=== PATIENT | female | born 2005 | race Two or more races ===

== ENCOUNTER 2024-09-09 17:57 | Emergency (ER) | payer OTHER ==
[~2024-09-09] VITALS: Ht 160 cm; Wt 59.0 kg
[2024-09-09] MEDS ORDERED: FAMOtidine 10 MG/ML (4ML VIAL) IV SCH (19:33)
[2024-09-09] MEDS ORDERED: ONDANSETRON HCL 2 MG/ML VIAL IV PRN (19:45)
[2024-09-09] MEDS ORDERED: DEXTROSE 5 % AND 0.9 % NACL 1,000 ML IV SCH (19:45)
[2024-09-09 20:06] LABS: HEMATOCRIT 39.2 % (36.0-45.00); HEMOGLOBIN 13.3 g/dL (12.0-15.00); MEAN CELL VOLUME 86.5 fL (80.00-100.00); MEAN CORPUSCULAR HEMOGLOBIN 29.2 pg (27.00-32.0); MEAN CORPUSCULAR HGB CONC 33.8 g/dl (32.0-36.0); PLATELET COUNT 336 K/uL (150-450); RED BLOOD COUNT 4.54 M/uL (4.00-6.00); RED CELL DISTRIBUTION WIDTH 13.1 % (11.5-14.5)
[2024-09-09 20:25] LABS: ALBUMIN 4.8 gm/dL (3.4-5.0); BILIRUBIN TOTAL 0.61 mg/dL (0.3-1.2); CALCIUM 9.6 mg/dL (8.5-10.1); CREATININE SERUM 0.64 mg/dL (0.55-1.02); GFR 118.3; GLOBULINA 4.1 G/DL (2.4-3.5); POTASSIUM 3.91 mEq/L (3.5-5.1); TOTAL PROTEIN 8.9 gm/dL (6.4-8.2)
[2024-09-09 22:00] LABS: PH,URINE 5.5 (5.0-8.0); URINE APPEARANCE Cloudy; URINE BILIRRUBIN Negative (NEGATIVE); URINE BLOOD Large; URINE COLOR Dark Yellow; URINE GLUCOSE Negative (NEGATIVE); URINE LEUKOCYTE Trace; URINE NITRATE Negative; URINE PROTEIN 30 (NEGATIVE)
[2024-09-09 22:04] LABS: URINE EPITHELIAL CELLS 90.8 uL (0.0-38.8); URINE RBC 16.3 uL (0.0-20.8); URINE WBC 40.6 uL (0.0-23.2)
[2024-09-09 22:16] LABS: URINE CAST 0.29 uL (0.0-1.40); URINE KETONE 80 (NEGATIVE)
[2024-09-09 22:17] LABS: URINE MUCUS HEAVY
== END 2024-09-09 22:42 | disposition home or self-care (01) ==
LOC: EMR PED 17:59 → ER 17:59 → EMR PED 19:17
PROVIDERS: General Practice
DX: K52.89 Other specified noninfective gastroenteritis and colitis (principal); R11.10 Vomiting, unspecified; Z20.822 Contact with and (suspected) exposure to COVID-19

== ENCOUNTER 2025-01-24 14:48 | Emergency (ER) | payer OTHER ==
[~2025-01-24] VITALS: Ht 160 cm; Wt 63.5 kg
[2025-01-24] MEDS ORDERED: FAMOTIDINE/PF 20 MG/2 ML VIAL IV SCH (16:00)
[2025-01-24] MEDS ORDERED: ONDANSETRON HCL 2 MG/ML VIAL IV SCH (16:00)
[2025-01-24] MEDS ORDERED: DEXTROSE 5 % AND 0.9 % NACL 1,000 ML IV SCH (16:00)
[2025-01-24] MEDS ORDERED: 0.9 % SODIUM CHLORIDE 1,000 ML IV SCH (16:00)
[2025-01-24] MEDS ORDERED: ONDANSETRON HCL 2 MG/ML VIAL ONE (16:07)
[2025-01-24] MEDS ORDERED: FAMOTIDINE/PF 20 MG/2 ML VIAL ONE (16:07)
[2025-01-24 16:46] LABS: HEMATOCRIT 39.5 % (36.0-45.00); HEMOGLOBIN 13.5 g/dL (12.0-15.00); MEAN CELL VOLUME 85.2 fL (80.00-100.00); MEAN CORPUSCULAR HEMOGLOBIN 29.1 pg (27.00-32.0); MEAN CORPUSCULAR HGB CONC 34.1 g/dl (32.0-36.0); PLATELET COUNT 384 K/uL (150-450); RED BLOOD COUNT 4.63 M/uL (4.00-6.00); RED CELL DISTRIBUTION WIDTH 12.8 % (11.5-14.5)
[2025-01-24 17:44] LABS: ALBUMIN 4.5 gm/dL (3.4-5.0); BILIRUBIN TOTAL 0.24 mg/dL (0.3-1.2); CALCIUM 9.8 mg/dL (8.5-10.1); CREATININE SERUM 0.59 mg/dL (0.55-1.02); GFR 129.95; GLOBULINA 4.7 G/DL (2.4-3.5); POTASSIUM 3.25 mEq/L (3.5-5.1); TOTAL PROTEIN 9.2 gm/dL (6.4-8.2)
[2025-01-24] MEDS ORDERED: RINGERS SOLUTION,LACTATED 1,000 ML IV SCH (19:00)
[2025-01-24] MEDS ORDERED: HYOSCYAMINE SULFATE 0.125 MG TAB.SUBL SL STA (19:15)
[2025-01-24] MEDS ORDERED: HYOSCYAMINE SULFATE 0.125 MG TAB.SUBL ONE (19:26)
[2025-01-24] MEDS ORDERED: BISMUTH SUBSALICYLATE 524 MG/30 ML BLIST.PACK PO STA (22:14)
[2025-01-24] MEDS ORDERED: BISMUTH SUBSALICYLATE 524 MG/30 ML BLIST.PACK PO ONE (22:36)
== END 2025-01-25 00:23 | disposition home or self-care (01) ==
LOC: ER 14:48 → EMR PED 15:05 → ER 15:05 → EMR PED 01-25 00:23
PROVIDERS: Emergency Medicine Pediatric Emergency Medicine
DX: E86.0 Dehydration (principal); K52.89 Other specified noninfective gastroenteritis and colitis

== ENCOUNTER 2025-06-30 17:54 | Emergency (ER) | payer OTHER ==
[~2025-06-30] VITALS: Ht 160 cm; Wt 63.5 kg
[2025-06-30 19:30] LABS: BASO % 0.5 % (0.1-1.2); EOS # 0.32 (0.04-0.54); EOS % 3.7 % (0.7-7.0); LYMPH # 2.33 (1.18-3.74); LYMPH % 26.8 % (19.3-53.1); MEAN PLATELET VOLUME 9.80 fl (9.4-12.4); MONO # 0.63 (0.24-0.82); MONO % 7.3 % (4.7-12.5); NEUT # 5.33 (1.56-6.13); NEUT % 61.4 % (34.0-71.1); RED CELL DISTRIBUTION WIDTH 12.8 % (11.6-14.4)
[2025-06-30 19:39] LABS: URINE APPEARANCE Clear; URINE BILIRRUBIN Small (NEGATIVE); URINE BLOOD Negative; URINE COLOR Orange; URINE GLUCOSE Negative (NEGATIVE); URINE KETONE Negative (NEGATIVE); URINE LEUKOCYTE Moderate; URINE NITRATE Positive; URINE PROTEIN Trace (NEGATIVE); URINE UROBILINOGEN 1.0 E.U./dl
[2025-06-30 19:48] LABS: URINE BACTERIA 694.7 uL (0.0-1933); URINE EPITHELIAL CELLS 25.6 uL (0.0-38.8); URINE RBC 10.1 uL (0.0-20.8); URINE WBC 162.4 uL (0.0-23.2)
[2025-06-30 19:50] LABS: BUN CREA RATIO 15.0 (7.0-25.0); CREATININE SERUM 0.59 mg/dL (0.55-1.02); GFR 128.67; GLUCOSE FASTING 101.0 mg/dL (65-100); OSMOLALITY SERUM 280.0 MOSM/KG (275-295)
[2025-06-30 20:10] LABS: URINE CAST 0.00 uL (0.0-1.40)
[2025-06-30 20:11] LABS: TYPE CELLS SQUAMOUS
[2025-06-30] MEDS ORDERED: CEFTRIAXONE SODIUM 1,000 MG VIAL IM ONE (21:00)
[2025-06-30] MEDS ORDERED: PEPCID AC20 MG PO (21:01)
[2025-06-30] MEDS ORDERED: BACTRIM DS TAB1 EACH PO (21:01)
[2025-06-30] MEDS ORDERED: CEFTRIAXONE SODIUM 1,000 MG VIAL ONE (21:25)
== END 2025-06-30 21:39 ==
LOC: ER 17:55
PROVIDERS: General Practice
DX: N39.0 Urinary tract infection, site not specified (principal); R30.0 Dysuria

== ENCOUNTER 2025-08-02 09:48 | Emergency (ER) | payer OTHER ==
[~2025-08-02] VITALS: Ht 160 cm; Wt 59.0 kg
[~2025-08-02 09:48] MED LIST: BACTRIM DS TAB1 EACH PO; PEPCID AC20 MG PO
[2025-08-02] MEDS ORDERED: DEXAMETHASONE SODIUM PHOSPHATE 4 MG/ML VIAL IM ONE (12:15)
[2025-08-02] MEDS ORDERED: KETOROLAC TROMETHAMINE 60 MG VIAL IM ONE ×2 (12:15→12:20)
[2025-08-02] MEDS ORDERED: ACETAMINOPHEN 500 MG GEL..CAP PO ONE ×2 (12:15→12:20)
[2025-08-02] MEDS ORDERED: DEXAMETHASONE SODIUM PHOSPHATE 4 MG/ML VIAL ONE (12:20)
== END 2025-08-02 18:40 | disposition home or self-care (01) ==
LOC: ER 09:48
DX: S82.392A Other fracture of lower end of left tibia, initial encounter for closed fracture (principal); S82.492A Other fracture of shaft of left fibula, initial encounter for closed fracture; S93.491A Sprain of other ligament of right ankle, initial encounter; W10.8XXA Fall (on) (from) other stairs and steps, initial encounter; Y93.89 Activity, other specified; Y92.89 Other specified places as the place of occurrence of the external cause; Y99.9 Unspecified external cause status

== ENCOUNTER 2025-09-17 13:46 | Outpatient (CLI) | payer OTHER | END 2025-09-17 14:05 | disposition home or self-care (01) | LOC: RAD 13:46 | PROVIDERS: ATTEND Orthopaedic Surgery | DX: S82.62XD Displaced fracture of lateral malleolus of left fibula, subsequent encounter for closed fracture with routine healing (principal) ==